=== PATIENT | male | born 1995 | race African-American/Black ===

== ENCOUNTER 2019-06-02 16:49 | Emergency (ER) | payer BC, MEDICAID ==
[~2019-06-02] VITALS: Ht 175.3 cm; Wt 64.0 kg
[2019-06-02 16:53] VITALS: Ht 175.3 cm; Wt 64.0 kg
[2019-06-02 21:19] VITALS: BP 112/64
== END 2019-06-02 21:19 | disposition home or self-care (01) ==
LOC: ED 16:49
DX: S61.216A Laceration without foreign body of right little finger without damage to nail, initial encounter (principal); S61.210A Laceration without foreign body of right index finger without damage to nail, initial encounter; Y04.8XXA Assault by other bodily force, initial encounter; Y93.89 Activity, other specified; Y92.89 Other specified places as the place of occurrence of the external cause; Y99.8 Other external cause status
CPT/HCPCS: A4570; J2001